=== PATIENT | female | born 1970 | race American Indian/Alaskan Native ===

== ENCOUNTER 2021-01-30 10:23 | Outpatient (CLI) | payer BC ==
--- NOTE | 2021-01-30 15:33 | Nuclear Medicine Report ---
Whole body bone scan INDICATION: Right hip pain without history of cancer. Right shoulder pain. TECHNIQUE: A total of 25.6 millicuries of technetium 99 MDP was injected IV per protocol. Whole-body images were obtained. COMPARISON: No prior exams available FINDINGS: Diffuse radiotracer uptake identified throughout the axial and appendicular skeleton with r enal excretion. There is low level uptake identified within both shoulders consistent with degenerati ve changes. There is also some low-level degenerative changes within both knees. No definite increase d hip uptake is identified on the right. IMPRESSION: Symmetric low level degenerative changes present within both shoulders. No significant fo janeen uptake identified within the right hip. Signer Name: Emil Ortiz MD Signed: 01/30/2021 3:28 PM Workstation Name: [email or web address]
== END 2021-01-30 10:24 | disposition home or self-care (01) ==
LOC: NM 10:23
PROVIDERS: ATTEND Psychiatry & Neurology Neurology
DX: M19.012 Primary osteoarthritis, left shoulder (principal); M19.011 Primary osteoarthritis, right shoulder; M51.36 Other intervertebral disc degeneration, lumbar region; M50.320 Other cervical disc degeneration, mid-cervical region, unspecified level; G56.03 Carpal tunnel syndrome, bilateral upper limbs
CPT/HCPCS: 78306; A9503

== ENCOUNTER 2021-03-16 08:33 | Day surgery (SDC) | payer BC ==
[2021-03-16 10:07] LABS: Hematocrit 31.9 % (30.3-42.9); Hemoglobin 11.4 gm/dl (10.1-14.3); Mean Corpuscular HGB Conc 36 % (30-34); Mean Corpuscular Volume 84 fl (79-97); Platelet Count 224 K/mm3 (140-440); Red Cell Distribution Width 14.1 % (13.2-15.2)
[2021-03-16 10:21] LABS: INR 0.96 (0.87-1.13)
[2021-03-16 10:22] LABS: Partial Thromboplastin Time 28.6 Sec. (24.2-36.6)
[2021-03-16] MEDS ORDERED: LIDOCAINE (2%) 20 MG/1 ML VIAL 20 ML MDV INFILTRATI ONE (11:24)
--- NOTE | 2021-03-16 11:37 | Short Stay Summary ---
Short Stay Documentation Date of service: 03/16/21 Narrative H&P: neck pain with radiculopathy. previous cervical fusion - History Principal diagnosis: radiculopathy Past Medical History: other Past Surgical History: Other (previous C spine fusion) - Allergies and Medications Current Medications: Allergies No Known Allergies Allergy (Verified 09/01/14 16:51) Home Medications Medication Instructions Recorded Confirmed Last Taken Type Metoprolol [Lopressor] 25 mg PO DAILY 05/19/14 03/11/16 09/07/14 21:30 History amLODIPine [Norvasc] 5 mg PO DAILY 05/19/14 03/11/16 09/08/14 06:00 History lisinopriL [Zestril] 20 mg PO QDAY 05/19/14 03/11/16 09/07/14 21:30 History Escitalopram Oxalate [Lexapro] 20 mg PO DAILY 09/08/14 03/11/16 09/07/14 History Erythromycin [Erythromycin Ophth 1 inch OD TID #1 tube 03/11/16 Unknown Rx Oint] HYDROcodone/APAP 5-325 [[place] 1 each PO Q6HR PRN #20 tablet 03/11/16 Unknown Rx 5/325] - Physical exam General appearance: no acute distress Extremities: no ischemia, pulses intact, No edema, normal temperature, normal color, Full ROM - Brief post op/procedure progress note Date of procedure: 03/16/21 Pre-op diagnosis: carvicalgia with radiculopathy Post-op diagnosis: same Procedure: cervical myelogram Anesthesia: local Findings: none Surgeon: PRUDENCIO CAICEDO Estimated blood loss: none Pathology: none Condition: stable - Hospital course Hospital course: uneventful - Disposition Condition at discharge: Good Short Stay Discharge Plan Follow up with: CAROLE SHAH MD [Primary Care Provider] - 7 Days
--- NOTE | 2021-03-16 12:42 | Fluoroscopy Report ---
FLUOROSCOPY CERVICAL MYELOGRAM HISTORY: Disc degeneration, neck pain, radiculopathy DESCRIPTION OF PROCEDURE: Informed consent was obtained. Sterile technique was utilized. 1% lidocaine for skin anesthesia. Using fluoroscopy guidance, lumbar puncture was performed at the L2-3 level. Th ere was spontaneous return of clear CSF. Approximately 12 cc of Omnipaque 300 contrast agent was admi nistered intrathecally. The contrast agent was free flowing from the lumbar region to the cervical re gion. The patient tolerated the procedure well and sent to the CT department for CT cervical myelogra m in good condition. IMPRESSION: Successful cervical myelogram. No high-grade stenosis is appreciated. Fluoroscopy time: 6.8 minutes. Fluoroscopic images: 6. CT CERVICAL SPINE WITH CONTRAST HISTORY: Disc degeneration. Neck pain. Radiculopathy. COMPARISON: None TECHNIQUE: CT images of the cervical spine were obtained after administration of intrathecal contrast . Sagittal and coronal reformats were post-processed. All CT scans at this location are performed us ing CT dose reduction for ALARA by means of automated exposure control. CONTRAST: 12 cc of Omnipaque 300 intrathecally. FINDINGS: Alignment: Alignment is normal. There has been previous anterior cervical fusion from C3-6. The hardw are appears well applied. Bony fusion is noted at C3-4, C4-5 and C5-6 levels. Vertebrae:No acute bony abnormality or bone lesion. Craniocervical Junction:No significant abnormality. Prevertebral Soft Tissues:No significant abnormality. Lung Apices: No significant abnormality. C2-3: No significant disc abnormality, spinal canal or neural foraminal stenosis. C3-4: Minor bilateral uncovertebral spurring is noted. No significant disc abnormality, spinal canal or neural foraminal stenosis. C4-5: Mild bilateral uncovertebral spurring is noted. No significant disc abnormality, spinal canal o r neural foraminal stenosis. C5-6: Mild bilateral uncovertebral spurring is noted. No significant disc abnormality, spinal canal o r neural foraminal stenosis. C6-7: Mild disc space narrowing, circumferential spurring and posterior bulging disc is identified. T he disc bulge lateralizes slightly to the left. No significant disc abnormality, spinal canal or neur al foraminal stenosis. C7-T1: No significant disc abnormality, spinal canal or neural foraminal stenosis. Additional Findings: None IMPRESSION: Stable appearance of the anterior fusion changes from C3-C6. No acute osseous abnormality or malalign ment. Mild to moderate degenerative disc disease at C6-7 as described. No evidence for central canal stenosis, large herniation or high-grade neural foraminal narrowing. Signer Name: Fco Jesus Jr, MD Signed: 03/16/2021 12:37 PM Workstation Name: [id number]
[2021-03-16 19:49] VITALS: BP 125/66
== END 2021-03-16 14:15 | disposition home or self-care (01) ==
LOC: CATHLABREC 08:33 → FLUORO 08:33 → CATHLABREC 14:15
PROVIDERS: ATTEND Psychiatry & Neurology Neurology
DX: M50.123 Cervical disc disorder at C6-C7 level with radiculopathy (principal); M43.22 Fusion of spine, cervical region; M51.36 Other intervertebral disc degeneration, lumbar region; G56.03 Carpal tunnel syndrome, bilateral upper limbs; I10 Essential (primary) hypertension; K21.9 Gastro-esophageal reflux disease without esophagitis; F41.9 Anxiety disorder, unspecified; Z79.899 Other long term (current) drug therapy; Z90.710 Acquired absence of both cervix and uterus; Z90.49 Acquired absence of other specified parts of digestive tract; Z98.890 Other specified postprocedural states; Z72.89 Other problems related to lifestyle; Z86.2 Personal history of diseases of the blood and blood-forming organs and certain disorders involving the immune mechanism
CPT/HCPCS: 36415; 62302; 72126; 85027; 85610; 85730; Q9967

== ENCOUNTER 2021-06-26 10:10 | Outpatient (CLI) | payer BC ==
--- NOTE | 2021-06-26 14:03 | Magnetic Resonance Report ---
MR cervical spine wo/w con INDICATION / CLINICAL INFORMATION: INTERVERTEBRAL DISC DEGENERATION, NECK BILAT. SHOULDER AND LOWER BACK PAIN. TECHNIQUE: Multisequence, multiplanar images of the cervical spine were obtained. COMPARISON: CT myelogram 03/16/2021 FINDINGS: ALIGNMENT: Normal alignment. VERTEBRAE:No aggressive osseous marrow signal. Vertebral body heights are preserved. SPINAL CORD: No abnormal cord signal [id number] ANALYSIS: C2-C3: No significant spinal canal stenosis. Moderate right facet arthropathy is unchanged. No signif icant foraminal narrowing. Postoperative changes from C3 to C6 anterior cervical discectomy and fusion. No significant abnormali ty of the surgerized levels. C6-C7: Asymmetric to left disc osteophyte complex. No significant spinal canal stenosis. Mild left an d no significant right foraminal narrowing. C7-T1: No significant spinal canal stenosis. No significant foraminal narrowing. PARASPINAL SOFT TISSUES: No significant abnormality. ADDITIONAL FINDINGS: None. IMPRESSION: 1. Postoperative changes from C3 to C6 ACDF with unchanged mild superior and inferior junctional spon dylosis. No significant spinal canal or foraminal stenosis at any level. CERVICAL GRADING DEFINITIONS FOR THE PURPOSES OF THIS REPORT: Cervical canal stenosis: No stenosis: No significant attenuation of the CSF spaces Mild stenosis: Attenuation or effacement of the ventral CSF Moderate stenosis: Effacement of both the ventral and dorsal CSF, cord flattening, but so me CSF remaining Severe stenosis: Effacement of all CSF, cord compression Cervical neural foraminal stenosis (Alejandra et al. [place] J Radiol. 2015 Jul-Aug;16(6):1294-302): No stenosis: No attenuation of the fat in the foramen Mild stenosis: Narrowest point of the foramen is larger than the extraforaminal nerve Moderate stenosis: Narrowest point of the foramen remains greater than 50% of the caliber of the extraforaminal nerve Severe stenosis: Narrowest point of the foramen is less than 50% of the caliber of th e extraforaminal nerve Signer Name: Francesco Azevedo MD Signed: 06/26/2021 1:59 PM Workstation Name: [id number]
--- NOTE | 2021-06-26 14:09 | Magnetic Resonance Report ---
MR lumbar spine wo con INDICATION / CLINICAL INFORMATION: INTERVERTEBRAL DISC DEGENERATION, NECK BILAT. SHOULDER AND LOWER BACK PAIN. TECHNIQUE: Multisequence, multiplanar images of the lumbar spine were obtained. COMPARISON: None available. FINDINGS: NOMENCLATURE: For the purposes of this report, L5-S1 is defined as axial image 41 of series 6. ALIGNMENT: Normal alignment. VERTEBRAE:No aggressive osseous marrow signal. Vertebral body heights are preserved. VISUALIZED SPINAL CORD: The conus appears within normal limits. [id number] ANALYSIS: L1-2: No significant spinal canal stenosis. No significant foraminal narrowing. L2-3: No significant spinal canal stenosis. No significant foraminal narrowing. L3-4: No significant spinal canal stenosis. No significant foraminal narrowing. L4-5: No significant spinal canal stenosis. No significant foraminal narrowing. L5-S1: No significant spinal canal stenosis. No significant foraminal narrowing. PARASPINAL SOFT TISSUES: No significant abnormality. ADDITIONAL FINDINGS: None. IMPRESSION: No significant abnormality of the lumbar spine. Definitions used for the purposes of this report: Lumbar canal stenosis (Brunilda et al. Br J Radiol. 2012;86(1819):[id number]): No stenosis: No attenuation of the CSF spaces Mild stenosis: Anterior CSF space mildly obliterated Moderate stenosis: Anterior CSF space is moderately obliterated; cauda equina partially aggregated Severe stenosis: Marked compression of the dural sac; cauda equina cannot be visually and a ppear as a bundle Lumbar lateral recess stenosis (Vidhya et al. World J Radiol. 2017 February 23;9(5):223-229): No stenosis: Nerve root is bathed in fluid Mild stenosis: Narrowing of the lateral recess without root deviation Moderate stenosis: Narrowing of the recess with nerve root deviation Severe stenosis: Compression of the nerve root Lumbar neural foraminal stenosis (Dewey et al. AJR Am J Roentgenol. 2010 Dec;194(4):1095-8): No stenosis: No attenuation of the fat in the foramen Mild stenosis: Loss of the fat in the foramen on two sides Moderate stenosis: Loss of the fat in the foramen all four sides Severe stenosis: Loss of the fat in the foramen all four sides and compression of the nerve root Signer Name: Francesco Azevedo MD Signed: 06/26/2021 2:02 PM Workstation Name: [id number]
== END 2021-06-26 10:11 | disposition home or self-care (01) ==
LOC: MRI 10:10
PROVIDERS: ATTEND Psychiatry & Neurology Neurology
DX: M51.36 Other intervertebral disc degeneration, lumbar region (principal); M50.320 Other cervical disc degeneration, mid-cervical region, unspecified level; M25.78 Osteophyte, vertebrae
CPT/HCPCS: 72148; 72156; A9575